=== PATIENT | female | born 1940 | race Caucasian/White ===

== ENCOUNTER 2017-09-15 12:59 | Inpatient (IN) | payer MEDICARE, OTHER, SELFPAY ==
[2017-09-15] VITALS (12 sets, daily range): BP systolic 124–185; BP diastolic 65–100; PULSE 71–89; RESP 14–23; TEMP 36.2–36.8; O2SAT 95–99; BMI 37.3; BMI 37.2
--- NOTE | 2017-09-15 14:50 | RAD_ITS ---
STUDY: X-RAY CHEST REASON FOR EXAM: Female, 77 years old. Chest pain with radiation to the left side of the mandible. TECHNIQUE: Single AP portable view of the chest. COMPARISON: Comparison is made with prior study dated June 06, 2014. FINDINGS: EKG electrodes are seen. There is elevation of the right hemidiaphragm. Scattered calcified granulomas. There is no demonstrated pleural abnormality. There is moderate cardiac enlargement. Normal mediastinum and alethea. Normal visualized pulmonary arteries. There is atherosclerotic calcification of the aortic arch with tortuosity. There are diffuse degenerative changes of the visualized thoracic spine. Normal visualized ribs, clavicles, and shoulders. There is no demonstrated abnormality of the visualized soft tissue structures of the upper abdomen. RAD/Chest 1 View (Portable) IMPRESSION: Cardiomegaly. The lungs are clear. Electronically Signed: Igor Dietz MD at 15:20 EDT Tel [phone], Service support ,
--- NOTE | 2017-09-15 14:50 | EKG12_ITS ---
Test Reason : CP Blood Pressure : / mmHG Vent. Rate : 092 BPM Atrial Rate : 092 BPM P-R Int : 162 ms QRS Dur : 074 ms QT Int : 340 ms P-R-T Axes : -06 -07 020 degrees QTc Int : 420 ms Normal sinus rhythm vs. ectopic atrial rhythm Septal infarct , age undetermined Inferior infarct , age undetermined Abnormal ECG Confirmed by VIOLETTE WEAVER, JENELLE ([id number]), purchasing expeditor EMERITA VELARDE ([id number]) on 09/21/2017 3:04:44 PM Referred By: ADELINA Confirmed By:JENELLE OAKES MD
[2017-09-15] MEDS: Aspirin 81 MG TAB.CHEW 324 MG PO (15:01)
[2017-09-15 15:08] LABS: Absolute Lymphocyte Count 2.08 X10^3/ul (0.83-4.51); Absolute Neutrophil Count 5.1 X10^3/uL (2.0-7.7); Basophil# 0.06 X10^3/uL; Basophil% 0.8 % (0-1); Eosinophil# 0.15 X10^3/uL; Eosinophils% 1.9 % (0-5); Hematocrit 42.9 % (37-47); Hemoglobin 14.6 g/dl (12.0-15.0); Lymphocyte # 2.08 X10^3/ul (4.0); Lymphocyte % 26.1 % (19-41); Mean Corpuscular Hgb 29.3 pg (27.0-32.0); Mean Platelet Vol. 9.7 fl (6.2-12.0); Monocyte# 0.58 X10^3/uL; Monocyte% 7.3 % (0-10); Neutrophil # 5.05 X10^3/uL (2.7-7.7); Neutrophil % 63.4 % (47-70); POSITIVE COUNT NO; POSITIVE DIFFERENTIAL NO; POSITIVE MORPHOLOGY NO; Platelet Count 231 K/mm3 (150-450); RBC Distribution Width SD 39.8 fl (35.1-43.9); Red Blood Count 4.99 M/mm3 (4.2-5.4)
[2017-09-15 15:20] LABS: Anion Gap 10 (5-15); BUN 21 mg/dL (7-18); BUN/Creat Ratio 23.1 RATIO (10-20); Calcium,Total 8.9 mg/dL (8.5-10.1); Chloride 104 mmol/L (98-107); Creatinine, Serum 0.91 mg/dL (0.55-1.02); EST Glomerular Filtration Rate 64 mL/min (>60); Est Glom Filt Rate - Afr Amer 77 mL/min (>60); Estimated Creatinine Clearance 42.83 ml/min; Glucose 181 mg/dL (74-106); Potassium 4.4 mmol/L (3.5-5.1); Sodium Level 139 mmol/L (136-145)
[2017-09-15 15:23] LABS: D-Dimer Quantitative (DVT/PE) 0.32 FEU/ug/m (0.27-0.49)
[2017-09-15] MEDS: 0.9% Normal Saline 1,000 ML 75 ML IV (15:30)
[2017-09-15] MEDS: hydrALAZINE 20 MG/ML Vial 10 MG IV (16:41)
--- NOTE | 2017-09-15 17:12 | ED.VISSUMM ---
- ER Visit Summary Date of Service: 09/15/17 Chief Complaint: Chest pain History of Present Illness: The patient is a 77 F reports chest pain that started around 11 AM this morning. States it felt like the worst heartburn ever. She points the lower sternal area describing her area of pain. Patient states symptoms lasted for approximately 45 minutes. She did have pain into her back as well. Pain also radiated up to the jaw into her ears. She also states that her left arm does not feel normal. 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 Prior stress test and cardiac cath for several years ago. Physical Examination: Blood pressure is 184/100, temperature 97.2, heart rate 89, respiratory rate 16, pulse ox 98% on room air. Head and neck examination is unremarkable. Heart is regular rate and rhythm. Lung sounds are clear. Abdomen is soft nontender. Extremity examination was no calf tenderness or edema. She has strong distal pulses throughout. Test Results: EKG is sinus at 92 with no sign of acute ischemia. Portable chest x-ray reveals cardiomegaly. Lung farnsworth are clear. CBC and chemistry studies are remarkable only for glucose of 181. Troponin is less than 0.02. D-dimer 0.32. Emergency Department Course and Treatment: Patient received aspirin on arrival. She denies any chest pain at this time. Blood pressure has remained elevated in the 160s-180s systolic. She is given 10 mg of IV hydralazine. I have spoken with the hospitalist regarding admission. Treatment Plan: [] Disposition: Admit Impression: 1. Chest pain 2. Hypertension This note was generated with My[employer] dictation software. It may contain incorrect words, spelling, and punctuation that were not noted in review of the chart prior to signing ED Disposition - Plan for ED Patient: Disposition: Acute Care Hospital [facility] Chief Complaint: Chest Pain
[2017-09-15 18:05] LABS: Bedside Glucose 126 mg/dL (70-110)
--- NOTE | 2017-09-15 18:21 | HP.PCM_ITS ---
Problem List (1) Hemolytic anemia Status: Chronic (2) HTN (hypertension) Status: Chronic (3) GERD (gastroesophageal reflux disease) Status: Chronic (4) Obesity (BMI 30-39.9) Status: Chronic (5) DM2 (diabetes mellitus, type 2) Status: Chronic History of Present Illness Date of Admission: 09/15/17 Chief Complaint: Chest pain The patient is a 77 year old F past medical history of hemolytic anemia, steroid -induced myopathy, PT is type II and essential hypertension who presented to the emergency room due to chest pain. She developed heartburn that did not go away, she later experienced chest pressure and left jaw pain as well as upper back pain decided to come to the emergency room for evaluation. Her workup thus far is unremarkable. We are placing her in the progressive care unit for observation and further workup. Past Medical History Past Medical History (Chronic Problems): Chronic Problems Hemolytic anemia (Chronic) HTN (hypertension) (Chronic) GERD (gastroesophageal reflux disease) (Chronic) Obesity (BMI 30-39.9) (Chronic) DM2 (diabetes mellitus, type 2) (Chronic) Allergies No Known Allergies Allergy (Verified 12/03/14 08:38) Home Medications: Ambulatory Orders Medication Instructions Recorded Gabapentin [Neurontin] 900 mg PO QHS 01/30/14 Metformin(XR) [Glucophage Xr] 500 mg PO DAILY 01/30/14 Insulin Detemir [Levemir (BKC)] 15 units SC DAILY 02/20/14 Losartan Potassium [Cozaar] 25 mg PO DAILY 03/06/14 Cholecalciferol (Vitamin D3) 5,000 unit PO DAILY 08/27/16 [Vitamin D3] Furosemide [Lasix] 20 mg PO DAILY PRN 08/27/16 Pantoprazole Sodium [Protonix] 40 mg PO DAILY 08/27/16 Vitamin B-12 1 tab PO DAILY 08/27/16 Liraglutide [Victoza] 1.2 mg SQ DAILY 09/15/17 Smoking Status: Never smoker - *Family History Maternal History Items: No pertinent history Review of Systems Comment: All Systems were reviewed with pertinent positives mentioned in the HPI above. VTE Information - Inpt Only VTE Present on Admission: No VTE Mechan Device Prophylaxis: SCD's VTE Pharm Prophylaxis ordered?: Yes - Physical Exam General: Alert, Oriented x3 HEENT: Atraumatic Oral: Moist Mucosa Neck: Supple, No JVD Vital Signs Temp Pulse Resp BP Pulse Ox 98.2 F 80 14 153/69 H 95 09/15/17 17:40 09/15/17 17:40 09/15/17 17:40 09/15/17 17:41 09/15/17 17:40 Oxygen Delivery Method Room Air Weight: 95.3 kg Body Mass Index (BMI) 37.2 POC Glucose 09/15/17 18:03 POC Glucose 126 H Assessment/Plan 1. Chest pain; will obtain serial cardiac enzymes and EKGs to rule out acute coronary syndrome, assuming negative cardiac enzymes , we will schedule a stress test in the morning. 2. DM type II; we will hold off on metformin, the patient will be continued on her Levemir and Victoza. 3. GERD; she is on a PPI 4. Early ambulation for DVT prophylaxis Code Visit OBSV E&M: 49089 Initial observation care L2
--- NOTE | 2017-09-15 18:57 | NURSING ---
Reviewed and agreed on all charting with Lorraine Cruz RN
[2017-09-15 20:04] LABS: Thyroid Stim Hormone (TSH) 1.46 uIU/mL (0.358-3.74)
[2017-09-15] MEDS: Gabapentin 300 MG Capsule 900 MG PO (21:23)
[2017-09-16 02:56] VITALS: PULSE 78
[2017-09-16 05:00] VITALS: BP 133/68; PULSE 86; RESP 16; TEMP 36.6; O2SAT 95
[2017-09-16 06:21] VITALS: PULSE 73
[2017-09-16 09:05] VITALS: BP 123/63; PULSE 86; RESP 16; TEMP 37.1; O2SAT 95
[2017-09-16] MEDS: Losartan Potassium 25 MG Tablet PO (09:14)
[2017-09-16] MEDS: Pantoprazole Sodium 40 MG Tablet PO (09:14)
[2017-09-16] MEDS: Cyanocobalamin 500 MCG Tablet PO (09:14)
[2017-09-16 09:21] LABS: Bedside Glucose 205 mg/dL (70-110)
--- NOTE | 2017-09-16 09:29 | STRESSREP ---
Stress Test Report Date: 09/16/2017 Procedure: Pharmacologic stress nuclear imaging study Indications: Chest pain Consent: Per the patient Procedure: The patient underwent pharmacologic (Regadenoson) evaluation with a peak heart rate of 107 beats per minute (74 predicted maximal heart rate) and a peak blood pressure of 158/78 mmHg. The baseline ECG demonstrated sinus rhythm; low voltage QRS; possible anterior GA of indeterminate age. The peak pharmacologic ECG demonstrated no obvious ECG changes. There were no cardiac dysrhythmias pretest, during pharmacologic infusion, or recovery. There was no complaint of chest discomfort during pharmacologic infusion or recovery. The examination was discontinued secondary to completion of protocol. Impression: 1. Pharmacologic (Regadenoson) evaluation 2. Peak pharmacologic ECG with no obvious ECG changes. 3. There were no cardiac dysrhythmias pretest, during pharmacologic infusion, or recovery 4. Nuclear images pending Myocardial perfusion imaging study: Technique: The patient was injected with 14.2 millicuries of technetium 99m Cardiolite and subsequently rest SPECT Cardiolite nuclear imaging was obtained in the horizontal long, vertical long, and short axis views. The patient underwent pharmacologic (Regadenoson) evaluation with a peak heart rate of 107 beats per minute (74 % percent predicted maximal heart rate) and a peak blood pressure of 158/78 mmHg. The patient was injected with 44.4 millicuries of technetium 99m Cardiolite and subsequently stress SPECT Cardiolite nuclear imaging was obtained in the horizontal long, vertical long, and short axis views. A gated Cardiolite study at peak stress was obtained. Interpretation: Rest and stress SPECT Cardiolite nuclear imaging status post realignment, normalization, and attenuation correction demonstrate relative uniform tracer uptake and myocardial perfusion appearing within normal limits. There is end systolic thickening and brightening. The gated Cardiolite study demonstrates myocardial thickening and inward wall motion. The reported LVEF is 81 %. Impression: 1. Rest and stress SPECT Cardiolite nuclear imaging demonstrate relative uniform tracer uptake and myocardial perfusion appearing within normal limits. 2. The gated Cardiolite study reports an LVEF of 81 %. This note was generated with Pure[employer] software. It may contain incorrect words, spelling, and punctuation that were not noted in checking the note before signing.
--- NOTE | 2017-09-16 09:32 | STRESSREP_ITS ---
Stress Test Report Date: 09/16/2017 Procedure: Pharmacologic stress nuclear imaging study Indications: Chest pain Consent: Per the patient Procedure: The patient underwent pharmacologic (Regadenoson) evaluation with a peak heart rate of 107 beats per minute (74 predicted maximal heart rate) and a peak blood pressure of 158/78 mmHg. The baseline ECG demonstrated sinus rhythm; low voltage QRS; possible anterior OR of indeterminate age. The peak pharmacologic ECG demonstrated no obvious ECG changes. There were no cardiac dysrhythmias pretest, during pharmacologic infusion, or recovery. There was no complaint of chest discomfort during pharmacologic infusion or recovery. The examination was discontinued secondary to completion of protocol. Impression: 1. Pharmacologic (Regadenoson) evaluation 2. Peak pharmacologic ECG with no obvious ECG changes. 3. There were no cardiac dysrhythmias pretest, during pharmacologic infusion, or recovery 4. Nuclear images pending Myocardial perfusion imaging study: Technique: The patient was injected with 14.2 millicuries of technetium 99m Cardiolite and subsequently rest SPECT Cardiolite nuclear imaging was obtained in the horizontal long, vertical long, and short axis views. The patient underwent pharmacologic (Regadenoson) evaluation with a peak heart rate of 107 beats per minute (74 % percent predicted maximal heart rate) and a peak blood pressure of 158/78 mmHg. The patient was injected with 44.4 millicuries of technetium 99m Cardiolite and subsequently stress SPECT Cardiolite nuclear imaging was obtained in the horizontal long, vertical long, and short axis views. A gated Cardiolite study at peak stress was obtained. Interpretation: Rest and stress SPECT Cardiolite nuclear imaging status post realignment, normalization, and attenuation correction demonstrate relative uniform tracer uptake and myocardial perfusion appearing within normal limits. There is end systolic thickening and brightening. The gated Cardiolite study demonstrates myocardial thickening and inward wall motion. The reported LVEF is 81 %. Impression: 1. Rest and stress SPECT Cardiolite nuclear imaging demonstrate relative uniform tracer uptake and myocardial perfusion appearing within normal limits. 2. The gated Cardiolite study reports an LVEF of 81 %. This note was generated with Playdem[employer] software. It may contain incorrect words, spelling, and punctuation that were not noted in checking the note before signing.
--- NOTE | 2017-09-16 09:59 | DCINST_ITS ---
You will use the following diet at home:: Calorie/Carbohydrate Controlled ( specify 1200, 1400, etc) - 1800 fe Your food should be the consistency of: Regular Discharge Activity: Return to Normal Activity Weight Bearing Status: Weight bearing as tolerated Call your doctor if you observe: Fever of 101 or Higher, Shortness of breath, Dizziness, Fainting spells, Chest pain, Increased palpitations (irregular heartbeat), Uncontrolled pain Allergies/Adverse Reactions: Allergies No Known Allergies Allergy (Verified 12/03/14 08:38) Medications to take at Discharge Gabapentin [Neurontin] 900 mg PO QHS 01/30/14 Metformin(XR) [Glucophage Xr] 500 mg PO DAILY 01/30/14 Insulin Detemir [Levemir FlexPen] 15 units SC DAILY 02/20/14 Losartan Potassium [Cozaar] 25 mg PO DAILY 03/06/14 Cholecalciferol (Vitamin D3) [Vitamin D3] 5,000 unit PO DAILY 08/27/16 Furosemide [Lasix] 20 mg PO DAILY PRN 08/27/16 Pantoprazole Sodium [Protonix] 40 mg PO DAILY 08/27/16 Vitamin B-12 1 tab PO DAILY 08/27/16 Liraglutide [Victoza] 1.2 mg SQ DAILY 09/15/17 Primary Care Physician: Martha Choe DO [Primary Care Provider] - Please follow up with your Primary Care Physician in: 2-3 weeks.
--- NOTE | 2017-09-16 10:47 | CASEMGMT ---
Chart reviewed by case management. No anticipated needs at this time. DC Plan: Home.
--- NOTE | 2017-09-16 13:11 | PCM.DC.SUM ---
Discharge Date and Diagnosis Date of Admission: 09/15/17 Date of Discharge: 09/16/17 - Primary Discharge Diagnosis Chest pain, ACS ruled out, attributed to probable GERD. - Secondary Discharge Diagnosis Chronic Problems Hemolytic anemia (Chronic) HTN (hypertension) (Chronic) GERD (gastroesophageal reflux disease) (Chronic) Obesity (BMI 30-39.9) (Chronic) DM2 (diabetes mellitus, type 2) (Chronic) Hospital Course and Treatment Imaging Results: 09/16/17 05:55 Nuclear Stress Test - Chemical [NM] AM (NON MEDS) Clinical Impression(s) from Imaging Studies Chest X-Ray 09/15/17 14:50 IMPRESSION: Cardiomegaly. The lungs are clear. Electronically Signed: Igor Dietz MD at 15:20 EDT Tel [phone], Service support , Operations: None Procedures: EKG, Stress test Summary of Care Provided: Patient seen and examined on the day of discharge and appeared to be stable to be discharged home. Her chest pain improved and almost gone but she had an episode of chest heaviness during the stress test. Her vital signs are stable. - Physical Exam General: Alert, Oriented x3, Cooperative, No apparent distress. HEENT: Atraumatic, PERRLA, EOMI. Neck: Supple, No JVD, Negative Carotid Bruits, Trachea Midline, Thyroid Normal. Lungs: Clear to auscultation, Normal air movement, No rhonchi, No wheeze, No rales. Cardiovascular: Regular rate, Regular Rhythm, Normal S1, Normal S2, PMI Normal. Abdomen: Bowel Sounds Present, Soft, Non Tender, Non-Distended, No Hepato-splenomegaly. Extremities: No clubbing, No cyanosis, No edema Skin: No rashes, No breakdown Neurological: Neuro grossly intact Vital Signs are stable. Hospital course: The patient is a 77 year old F admitted because of chest pain for evaluation. She has history of hypertension, type 2 diabetes and she is [age] years old. Her EKG revealed no evidence of acute ischemic changes. Her troponin was negative ?4. Chest x-ray showed no acute findings. She underwent nuclear stress test that revealed no evidence of acute stress-induced myocardial ischemia. ACS ruled out. She had a history of GERD and her symptoms probably due to GERD. Her routine blood work was unremarkable. TSH was normal. Vital signs remained stable throughout admission. D-dimer was negative. Patient discharged home in a stable medical condition, discharged on her chronic home medications without any changes, recommended follow-up with PCP in 2-3 weeks. Discharge Activity: Return to Normal Activity Weight Bearing Status: Weight bearing as tolerated Call your doctor if you observe: Fever of 101 or Higher, Shortness of breath, Dizziness, Fainting spells, Chest pain, Increased palpitations (irregular heartbeat), Uncontrolled pain Home Medications: Medications to take at Discharge Gabapentin [Neurontin] 900 mg PO QHS 01/30/14 Metformin(XR) [Glucophage Xr] 500 mg PO DAILY 01/30/14 Insulin Detemir [Levemir FlexPen] 15 units SC DAILY 02/20/14 Losartan Potassium [Cozaar] 25 mg PO DAILY 03/06/14 Cholecalciferol (Vitamin D3) [Vitamin D3] 5,000 unit PO DAILY 08/27/16 Furosemide [Lasix] 20 mg PO DAILY PRN 08/27/16 Pantoprazole Sodium [Protonix] 40 mg PO DAILY 08/27/16 Vitamin B-12 1 tab PO DAILY 08/27/16 Liraglutide [Victoza] 1.2 mg SQ DAILY 09/15/17 Primary Care Physician: Martha Choe DO [Primary Care Provider] - Please follow up with your Primary Care Physician in: 2-3 weeks. Disposition: Home Minutes spent on discharge:: 24 Patient Condition:: Stable Medical Necessity - Tobacco Use Smoking Status: Never smoker Meaningful Use Info Meaningful Use Diagnoses (Choose all that apply): None applicable Code Visit OBSV E&M: 00664 Observation care discharge
--- NOTE | 2017-09-16 13:14 | DS.PCM_ITS ---
Discharge Date and Diagnosis Date of Admission: 09/15/17 Date of Discharge: 09/16/17 - Primary Discharge Diagnosis Chest pain, ACS ruled out, attributed to probable GERD. - Secondary Discharge Diagnosis Chronic Problems Hemolytic anemia (Chronic) HTN (hypertension) (Chronic) GERD (gastroesophageal reflux disease) (Chronic) Obesity (BMI 30-39.9) (Chronic) DM2 (diabetes mellitus, type 2) (Chronic) Hospital Course and Treatment Imaging Results: 09/16/17 05:55 Nuclear Stress Test - Chemical [NM] AM (NON MEDS) Clinical Impression(s) from Imaging Studies Chest X-Ray 09/15/17 14:50 IMPRESSION: Cardiomegaly. The lungs are clear. Electronically Signed: Igor Dietz MD at 15:20 EDT Tel [phone], Service support , Operations: None Procedures: EKG, Stress test Summary of Care Provided: Patient seen and examined on the day of discharge and appeared to be stable to be discharged home. Her chest pain improved and almost gone but she had an episode of chest heaviness during the stress test. Her vital signs are stable. - Physical Exam General: Alert, Oriented x3, Cooperative, No apparent distress. HEENT: Atraumatic, PERRLA, EOMI. Neck: Supple, No JVD, Negative Carotid Bruits, Trachea Midline, Thyroid Normal. Lungs: Clear to auscultation, Normal air movement, No rhonchi, No wheeze, No rales. Cardiovascular: Regular rate, Regular Rhythm, Normal S1, Normal S2, PMI Normal. Abdomen: Bowel Sounds Present, Soft, Non Tender, Non-Distended, No Hepato- splenomegaly. Extremities: No clubbing, No cyanosis, No edema Skin: No rashes, No breakdown Neurological: Neuro grossly intact Vital Signs are stable. Hospital course: The patient is a 77 year old F admitted because of chest pain for evaluation. She has history of hypertension, type 2 diabetes and she is 7 7 years old. Her EKG revealed no evidence of acute ischemic changes. Her troponin was negative ? 4. Chest x-ray showed no acute findings. She underwent nuclear stress test that revealed no evidence of acute stress-induced myocardial ischemia. ACS ruled out. She had a history of GERD and her symptoms probably due to GERD. Her routine blood work was unremarkable. TSH was normal. Vital signs remained stable throughout admission. D-dimer was negative. Patient discharged home in a stable medical condition, discharged on her chronic home medications without any changes, recommended follow-up with PCP in 2-3 weeks. Discharge Activity: Return to Normal Activity Weight Bearing Status: Weight bearing as tolerated Call your doctor if you observe: Fever of 101 or Higher, Shortness of breath, Dizziness, Fainting spells, Chest pain, Increased palpitations (irregular heartbeat), Uncontrolled pain Home Medications: Medications to take at Discharge Gabapentin [Neurontin] 900 mg PO QHS 01/30/14 Metformin(XR) [Glucophage Xr] 500 mg PO DAILY 01/30/14 Insulin Detemir [Levemir FlexPen] 15 units SC DAILY 02/20/14 Losartan Potassium [Cozaar] 25 mg PO DAILY 03/06/14 Cholecalciferol (Vitamin D3) [Vitamin D3] 5,000 unit PO DAILY 08/27/16 Furosemide [Lasix] 20 mg PO DAILY PRN 08/27/16 Pantoprazole Sodium [Protonix] 40 mg PO DAILY 08/27/16 Vitamin B-12 1 tab PO DAILY 08/27/16 Liraglutide [Victoza] 1.2 mg SQ DAILY 09/15/17 Primary Care Physician: Martha Choe DO [Primary Care Provider] - Please follow up with your Primary Care Physician in: 2-3 weeks. Disposition: Home Minutes spent on discharge:: 24 Patient Condition:: Stable Medical Necessity - Tobacco Use Smoking Status: Never smoker Meaningful Use Info Meaningful Use Diagnoses (Choose all that apply): None applicable Code Visit OBSV E&M: 33140 Observation care discharge
--- NOTE | 2017-09-21 15:24 | CASEMGMT ---
RN CM DISCHARGE F/U PHONE CALL LACE: 9 STRATA: 3 CALL DATE: 09/21/17 DISCHARGE DATE: 09/21/17 TIME OF CALL: 1522 DURATION: 2 MINUTES ADM DX: CHEST PAIN PT STATES HAS BEEN DOING 'OK' SINCE DISCHARGE, STATES WAS EXHAUSTED INITIALLY BUT IS FEELING BETTER. PT STATES NO CONCERNS REGARDING D/C INSTRUCTIONS/MEDICATIONS. PT STATES HAS ALREADY F/U WITH DR SUAREZ LAST WEDNESDAY. PT STATES NO CONCERNS/SUGGESTIONS FOR [facility] AT THIS TIME. PT DECLINED TO TAKE CONTACT INFO FOR THIS RN CHRISTOPHER AT THIS TIME. SSTATEN KUMAR CM
== END 2017-09-16 10:47 | disposition home or self-care (01) | DRG 392 ==
LOC: ED 15:17 → PCU 16:50
PROVIDERS: Admitting Provider Internal Medicine; Emergency Provider Emergency Medicine; Family Provider Internal Medicine; PCP Internal Medicine; Visit Provider Hospitalist
DX: K21.9 Gastro-esophageal reflux disease without esophagitis (principal); D58.9 Hereditary hemolytic anemia, unspecified; I10 Essential (primary) hypertension; E11.9 Type 2 diabetes mellitus without complications; E66.9 Obesity, unspecified; Z68.37 Body mass index [BMI] 37.0-37.9, adult; Z79.4 Long term (current) use of insulin
CPT/HCPCS: 36415; 71045; 78452; 80048; 82962; 84443; 84484; 85025; 85379; 93005; 93017; 99285; A9500; J7030; A4216; J2785

== ENCOUNTER → 2018-03-03 11:04 | Outpatient (CLI) | payer MEDICARE, OTHER, SELFPAY ==
[2018-03-03 11:21] LABS: Mucous, Urine 0 SEEN /hpf (<or=2+); Red Blood Cells-Urine 0 SEEN /hpf (0-5)
[2018-03-03 11:50] LABS: Color, Urine Yellow (Yellow); Glucose, Dipstick Normal (Normal); Ketone-Dipstick Negative (Negative); Leukocyte Esterase-Dipstick 100 /ul (Negative); Nitrite-Dipstick Negative (Negative); Occult Blood-Urine Negative /ul (Negative); Protein-Dipstick 15 mg/dl (Negative); Urine Bilirubin Dipstick 1 mg/dL (Negative); Urine Clarity Sl. Cloudy (Clear); Urine Urobilinogen 1 mg/dl (Normal)
[2018-03-03 11:53] LABS: Absolute Lymphocyte Count 1.98 X10^3/ul (0.83-4.51); Absolute Neutrophil Count 3.4 X10^3/uL (2.0-7.7); Basophil# 0.06 X10^3/uL; Eosinophil# 0.14 X10^3/uL; Eosinophils% 2.4 % (0-5); Hematocrit 39.9 % (37-47); Hemoglobin 13.2 g/dl (12.0-15.0); Lymphocyte # 1.98 X10^3/ul (4.0); Lymphocyte % 33.5 % (19-41); Mean Corp Hgb Conc 33.1 g/gl (32-36); Mean Corpuscular Hgb 28.6 pg (27.0-32.0); Mean Corpuscular Volume 86.4 fL (81-99); Mean Platelet Vol. 9.3 fl (6.2-12.0); Monocyte# 0.29 X10^3/uL; Monocyte% 4.9 % (0-10); Neutrophil # 3.43 X10^3/uL (2.7-7.7); Platelet Count 189 K/mm3 (150-450); RBC Distribution Width CV 12.8 % (11.6-14.6); RBC Distribution Width SD 40.4 fl (35.1-43.9); Red Blood Count 4.62 M/mm3 (4.2-5.4); White Blood Count 5.9 K/mm3 (4.4-11.0)
[2018-03-03 11:54] LABS: POSITIVE COUNT NO; POSITIVE DIFFERENTIAL NO; POSITIVE MORPHOLOGY NO
[2018-03-03 11:55] LABS: Bacteria 2+ /hpf (None Seen); Squamous Epithelial Cells - UA 0-5 SEEN /hpf (5-10); White Blood Cells 5-10 SEEN /hpf (0-5)
[2018-03-03 12:15] LABS: Microalbumin:Creatinine Ratio 6.5 mg/g CRE (<30 mg/g CRE)
[2018-03-03 12:22] LABS: ALB/GLOB Ratio 1.3 RATIO (0.9-2.4); AST(SGOT) 15 U/L (15-37); Alanine Aminotransfer ALT/SGPT 27 U/L (13-56); Albumin, Serum 3.7 g/dL (3.2-5.0); Alkaline Phosphatase 61 U/L (45-117); Anion Gap 7 (5-15); BUN 17 mg/dL (7-18); BUN/Creat Ratio 20.4 RATIO (10-20); Calcium,Total 8.7 mg/dL (8.5-10.1); Chloride 104 mmol/L (98-107); Creatinine, Serum 0.83 mg/dL (0.55-1.02); EST Glomerular Filtration Rate 70 mL/min (>60); Est Glom Filt Rate - Afr Amer 85 mL/min (>60); Globulin 2.8 g/dL (2.2-4.2); Glucose 184 mg/dL (74-106); Potassium 4.3 mmol/L (3.5-5.1); Protein, Total 6.5 g/dL (6.4-8.2); Sodium Level 141 mmol/L (136-145)
[2018-03-03 12:34] LABS: Vitamin D,25 Hydroxy 28.2 ng/mL (29.95-100.01)
[2018-03-05 12:06] LABS: CHOLESTEROL TOTAL 205 mg/dL (100-199); HDL-C 37 mg/dL (>39); HDL-P TOTAL 29.8 umol/L (>=30.5); SMALL LDL-P 1259 nmol/L (<=527); TRIGLYCERIDES 192 mg/dL (0-149)
[2018-03-06 13:52] LABS: LDL SIZE 20.2 nm (>20.5); LDL-C 130 mg/dL (0-99); LDL-P 1997 nmol/L (<1000); LP-IR SCORE ** 89 (<=45)
== END ==
PROVIDERS: Family Provider Internal Medicine; PCP Internal Medicine; Referring Provider Internal Medicine; Visit Provider Internal Medicine
DX: E11.9 Type 2 diabetes mellitus without complications (principal); E55.9 Vitamin D deficiency, unspecified
CPT/HCPCS: 36415; 80053; 80061; 81001; 82043; 82306; 82570; 83704; 84443; 85025

== ENCOUNTER → 2018-03-04 12:03 | Outpatient (CLI) | payer MEDICARE, OTHER, SELFPAY ==
--- NOTE | 2018-03-04 12:06 | RAD_ITS ---
STUDY: X-RAY - LUMBAR SPINE REASON FOR EXAM: Female, 77 years old. Low back pain TECHNIQUE: Five view(s) of the lumbar spine were obtained. COMPARISON: None FINDINGS: There is straightening of the normal lumbar lordosis. There is no significant scoliosis. There is normal alignment of the vertebrae. There are small osteophytes scattered in the lumbar spine. Vertebral body heights are maintained. There is moderate disc space narrowing at L4-5. There is atherosclerotic calcification of the abdominal aorta without a demonstrated aneurysm. RAD/L/S Spine Min 4 Views IMPRESSION: There are moderate degenerative disc changes at L4-5. There are bony degenerative changes scattered in the remainder of the lumbar spine and in the visualized lower thoracic spine. Electronically Signed: Ivanna Means MD at 1:55 EDT Tel Direct: [phone], Service support ,
== END ==
PROVIDERS: Family Provider Internal Medicine; PCP Internal Medicine; Referring Provider Internal Medicine; Visit Provider Internal Medicine
DX: M54.5 Low back pain (principal); M54.10 Radiculopathy, site unspecified
CPT/HCPCS: 72110

== ENCOUNTER → 2018-03-07 12:59 | Outpatient (CLI) | payer MEDICARE, OTHER, SELFPAY ==
--- NOTE | 2018-03-07 13:03 | MRI_ITS ---
STUDY: MRI LUMBAR SPINE WITHOUT CONTRAST REASON FOR EXAM: Female, 77 years old. Low back pain with bilateral sciatica TECHNIQUE: Standardized fat and water weighted pulse sequences were obtained in the sagittal and axial planes. COMPARISON: None FINDINGS: T12-L1: Normal endplates. Normal disc height, hydration and morphology. Normal bilateral facet joints. Normal central canal and bilateral lateral recesses. Normal bilateral intervertebral neural foramina. Normal lumbar lordosis. There is no substantial scoliosis. Normal conus medullaris that terminates at T12-L1 Osseous hemangioma within the L1 vertebral body L1-2: Mild endplate spurring. Normal disc height, desiccation and minor annular bulge.. Normal bilateral facet joints. Normal central canal and bilateral lateral recesses. Normal bilateral intervertebral neural foramina. L2-3: Mild endplate spurring. Normal disc height, desiccation and minor annular bulge with small bilateral posterolateral/foraminal disc protrusions.. Normal bilateral facet joints. Normal central canal. Mild bilateral recess and neuroforaminal encroachment. L3-4: Grade 1 spondylolisthesis . Endplate spurring. Normal disc height, desiccation and moderate bulging disc osteophyte complex. Bilateral facet arthropathy and thickening of ligamenta flava. Mild to moderate central canal stenosis. Severe bilateral recess and neuroforaminal stenosis exaggerated by shortened pedicles L4-5: Endplate spurring.. Normal disc height, desiccation and mild annular bulge. Facet arthropathy and thickening of ligamenta flava.. Mild narrowing of the central canal. Moderate bilateral recess and neural foraminal stenosis. L5-S1: Endplate spurring.. Normal disc height, desiccation and minor bulging disc osteophyte complex.. Bilateral facet arthropathy greater on the left... Normal central canal. Moderate right lateral recess and neuroforaminal stenosis with more severe narrowing on the left Normal visualized sacral ala. Normal visualized paraspinous soft tissue structures. MRI/Spine Lumbar (Routine) IMPRESSION: No evidence for acute fracture or other significant bony pathology Multilevel disc degeneration and spinal stenosis most severe at L3-4 secondary to disc disease and bony hypertrophy and exaggerated by shortened pedicles Electronically Signed: Adarsh Vázquez MD at 21:42 EDT , Service support ,
== END ==
PROVIDERS: Family Provider Internal Medicine; PCP Internal Medicine; Referring Provider Internal Medicine; Visit Provider Internal Medicine
DX: M54.5 Low back pain (principal)
CPT/HCPCS: 72148